=== PATIENT | female | born 1995 | race Hispanic/Latino ===

== ENCOUNTER 2019-05-03 14:29 | Observation (INO) | payer MEDICAID ==
[2019-05-03] MEDS ORDERED: XYLOCAINE 2% INFILTRATI ONE (15:23)
[2019-05-03] MEDS ORDERED: ZOFRAN IV PRN (15:23)
[2019-05-03] MEDS ORDERED: BRETHINE SUB-Q PRN (15:23)
[2019-05-03] MEDS ORDERED: SUBLIMAZE IV PRN (15:23)
[2019-05-03] MEDS ORDERED: MINERAL OIL PO PRN (15:23)
[2019-05-03] MEDS ORDERED: CELESTONE SOLUSPAN IM ONE (15:25)
[2019-05-03] MEDS ORDERED: LACTATED RINGERS 1,000 ML IV ONE (15:46)
[2019-05-03] MEDS ORDERED: PITOCin/NS 20 UNIT/1000ML DRIP 20 UNITS/1,000 ML BAG IV SCH (16:00)
--- NOTE | 2019-05-03 16:06 | Event Note ---
Date: 05/03/19 Patient sent to L&D from the office d/t contractions and advanced dilation. tachycardia noted, cat 2. MHR 100-130, she states +fm, she denies f/c/n/v. No abd pain. IVF/PO hydration. Close observation
[2019-05-03 16:13] LABS: Hemoglobin 11.6 gm/dl (10.1-14.3); Mean Corpuscular HGB Conc 34 % (30-34); Mean Corpuscular Volume 83 fl (79-97); Platelet Count 269 K/mm3 (140-440); Red Blood Count 4.11 M/mm3 (3.65-5.03); Red Cell Distribution Width 14.9 % (13.2-15.2)
[2019-05-03] MEDS: LACTATED RINGERS 1,000 ML IV SCH ×2 (16:24→23:43)
[2019-05-03 16:39] LABS: Alanine Aminotransferase 9 units/L (7-56); Uric Acid 5.1 mg/dL (3.5-7.6)
--- NOTE | 2019-05-03 17:43 | History and Physical Report ---
History of Present Illness Date of examination: 05/03/19 (pt sent from office 5,90,-1) Date of admission: 05/03/19 14:29 History of present illness: EDC Confirmation: 05/28/2019 Gestational Age: 7 5/7 weeks Past History : 2 Term Births: 0 Premature Births: 1 Living Children: 1 Para: 1 Mult. Births: 0 Prev : 0 Aborta: 0 Elect. Ab: 0 Spont. 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 of genital herpes: no Partner hx. of genital herpes: no Rash, Viral, or Febrile illness since last LMP? no Varicella/Chicken Pox Status: Immunized Genetic History Congenital Heart Defect: Mom: no Dad: no Cheryl Disease: Mom: no Dad: no Thalassemia Mom: no Dad: no Neural Tube Defect Mom: no Dad: no Down's Syndrome Mom: no Dad: no Cedrick-Sachs Mom: no Dad: no Sickle Cell Disease/Trait Mom: no Dad: no Hemophilia Mom: no Dad: no Muscular Dystrophy Mom: no Dad: no Cystic Fibrosis Mom: no Dad: no [place] Chorea Mom: no Dad: no Mental Retardation Mom: no Dad: no Fragile X Mom: no Dad: no Other Genetic/Chromosomal Disorder Mom: no Dad: no Child w/other defect Mom: no Dad: no Enviromental Exposures Xray Exposure: no Medication, drug, or alcohol use since LMP: no Chemical/Other Exposure: no Exposure to Cat Liter: no Hx of Parvovirus (Fifth Disease): no Active Medications (reviewed today): None Current Allergies (reviewed today): * CEPHALOSPORINS (Critical) Past History - Obstetrical History Expected Date of Delivery: 05/28/19 Actual Gestation: 36 Week(s) 3 Day(s) : 2 Para: 1 Hx # Term Pregnancies: 0 Number of Pregnancies: 1 (Del @ 36 weeks) Spontaneous Abortions: 0 Induced : 0 Number of Living Children: 1 Medications and Allergies Allergies Allergy/AdvReac Type Severity Reaction Status Date / Time Cephalosporins Allergy Severe Anaphylaxis Verified 05/03/19 16:13 Home Medications Medication Instructions Recorded Confirmed Last Taken Type Aspirin [Adult Aspirin] 81 mg PO DAILY 05/03/19 05/03/19 05/02/19 22:00 History [facility] Gummies 2 tab PO DAILY 05/03/19 05/03/19 05/02/19 22:00 History Active Meds: Active Medications Ephedrine Sulfate (Ephedrine Sulfate) 10 mg IV Q2M PRN PRN Reason: Hypotension Fentanyl (Sublimaze) 100 mcg IV Q2H PRN PRN Reason: Labor Pain Oxytocin/Sodium Chloride (Pitocin/Ns 20 Unit/1000ml Drip) 20 units in 1,000 mls @ 125 mls/hr IV DIRECT BEKAH Lactated Ringer's (Lactated Ringers) 1,000 mls @ 125 mls/hr IV DIRECT BEKAH Last Admin: 05/03/19 16:24 Dose: 125 mls/hr Documented by: Mineral Oil (Mineral Oil) 30 ml PO QHS PRN PRN Reason: Constipation Ondansetron HCl (Zofran) 4 mg IV Q8H PRN PRN Reason: Nausea And Vomiting Terbutaline Sulfate (Brethine) 0.25 mg SUB-Q ONCE PRN PRN Reason: Hyperstimulation/Hypertonicity - Vital Signs Vital signs: Vital Signs Pulse BP Pulse Ox 135 H 135/88 94 05/03/19 14:50 05/03/19 14:50 05/03/19 14:50 Temp Pulse Resp BP Pulse Ox 97.0 F L 98 H 18 125/70 97 05/03/19 14:51 05/03/19 17:38 05/03/19 14:51 05/03/19 17:18 05/03/19 17:38 - Physical Exam Breasts: Positive: deferred Cardiovascular: Regular rate, Normal S1, Normal S2 Lungs: Positive: Normal air movement Abdomen: Positive: normal appearance, soft, normal bowel sounds. Negative: distention, tenderness Genitourinary (Female): Positive: normal external genitalia Vulva: both: normal Vagina: Positive: normal moisture. Negative: discharge Cervix: Negative: lesion, discharge Uterus: Positive: normal size, normal contour Adnexa: both: normal Anus/Rectum: Positive: normal perianal skin, heme negative. Negative: rectal mass, hemorrhoids Extremities: Positive: normal Deep Tendon Reflex Grade: Normal +2 - Obstetrical FHR: category 1 Uterine Contraction Monitor Mode: External Cervical Dilatation: 5 (BBOW) Cervical Effacement Percentage: 90 station: -1 Uterine Contraction Pattern: Irregular Uterine Tone Measurement Phase: Resting Uterine Contraction Intensity: Mild Results Result Diagrams: 05/03/19 15:39 05/03/19 15:48 Abnormal lab results 05/03/19 Range/Units 15:48 Creatinine 0.6 L (0.7-1.2) mg/dL All other labs normal. GBS Negative HBsAg Screen Negative Negative *1 RPR Non Reactive Non Reactive *2 Rubella Antibodies, IgG [L] <0.90 index Immune >0.99 *3 Non-immune <0.90 Equivocal 0.90 - 0.99 Immune >0.99 ABO Grouping O *4 Rh Factor Positive *5 Please note: Prior records for this patient's ABO / Rh type are not available for additional verification. Antibody Screen Negative Negative *6 WBC 8.6 x10E3/uL 3.4-10.8 *7 RBC 4.22 x10E6/uL 3.77-5.28 *8 Hemoglobin 12.5 g/dL 11.1-15.9 *9 Hematocrit 37.9 % 34.0-46.6 *10 MCV 90 fL 79-97 *11 MCH 29.6 pg 26.6-33.0 *12 MCHC 33.0 g/dL 31.5-35.7 *13 RDW 13.2 % 12.3-15.4 *14 Platelets 252 x10E3/uL 150-379 *15 Neutrophils 70 % Not Estab. *16 Lymphs 24 % Not Estab. *17 Monocytes 4 % Not Estab. *18 Eos 2 % Not Estab. *19 Basos 0 % Not Estab. *20 ! Immature Cells <No Reported Value> *21 Neutrophils (Absolute) 6.1 x10E3/uL 1.4-7.0 *22 Lymphs (Absolute) 2.0 x10E3/uL 0.7-3.1 *23 Monocytes(Absolute) 0.4 x10E3/uL 0.1-0.9 *24 Eos (Absolute) 0.1 x10E3/uL 0.0-0.4 *25 Baso (Absolute) 0.0 x10E3/uL 0.0-0.2 *26 ! Immature Granulocytes 0 % Not Estab. *27 ! Immature Grans (Abs) 0.0 x10E3/uL 0.0-0.1 *28 ! NRBC <No Reported Value> *29 Hematology Comments: <No Reported Value> *30 Tests: (2) Panel 638392 ([id number]) HIV Screen 4th Generation wRfx Non Reactive Non Reactive *31 Tests: (3) Gest. Diabetes 1-Hr Screen (810315) ! Gestational Diabetes Screen 118 mg/dL 65-139 *32 According to ADA, a glucose threshold of >139 mg/dL after 50-gram load identifies approximately 80% of women with gestational diabetes mellitus, while the sensitivity is further increased to approximately 90% by a threshold of >129 mg/dL. Tests: (4) HCV Ab w/Rflx to Verification (466369) ! HCV Ab <0.1 s/co ratio 0.0-0.9 *33 Tests: (5) Comment: (075089) ! Comment: SPRCS *34 Non reactive HCV antibody screen is consistent with no HCV infection, unless recent infection is suspected or other evidence exists to indicate HCV infection. Tests: (6) Urine Culture, Routine (162739) Urine Culture, Routine Final report *35 Tests: (7) Result ([id number]) ! Result 1 No growth *36 Assessment and Plan - Patient Problems (1) labor in third trimester Onset Date: ~05/03/19 Current Visit: Yes Status: Acute Qualifiers: Fetus number: single or unspecified fetus Plan to address problem: pt sent from office with exam of 5,90,-1 Pt is have irregular mild ctx. aware. BMZ given X 1 dose for now. GBS negative PIH labs drawn due to elevated BP on arrival and hx of GHTN, labs are wnl. BP now normotensive. Will continue to observe. Pt made aware of my concerns about active mgt due to baby being . Agrees to POC to obs overnight and re-eval in the AM. Regular diet ordered, PM care. Ambien if needed.
[2019-05-03] MEDS ORDERED: AMBIEN PO PRN (18:39)
[2019-05-03 22:51] LABS: Bilirubin,Urine NEG (Negative); Blood,Urine NEG (Negative); Color,Urine Yellow (Yellow); Mucus,Urine FEW /HPF; Protein,Urine <15 mg/dL mg/dL (Negative); Urobilinogen,Urine < 2.0 mg/dL (<2.0)
[2019-05-04 07:00] VITALS: BP 127/80
--- NOTE | 2019-05-04 07:37 | Progress Note ---
Assessment and Plan pt w/o complaints, denies regular ctx. SVE rechecked w/o change by previous provider and this provider. plan for d/c home, f/u appointment in office Thursday. pre-e precautions and labor precautions reviewed. - Patient Problems (1) 36 weeks gestation of Current Visit: Yes Status: Acute (2) labor in third trimester Onset Date: ~05/03/19 Current Visit: Yes Status: Acute Qualifiers: Fetus number: single or unspecified fetus Subjective - Subjective Date of service: 05/04/19 Principal diagnosis: IUP @ 36+3 Patient reports: movement normal, no new complaints, no loss of fluid, no vaginal bleeding, no contractions Objective - Vital Signs Vital Signs: Vital Signs - 12hr 05/03/19 05/03/19 05/03/19 20:18 20:23 20:28 Temperature Pulse Rate 104 H 105 H 104 H Respiratory Rate Blood Pressure O2 Sat by Pulse 98 98 97 Oximetry 05/03/19 05/03/19 05/03/19 20:33 20:38 20:43 Temperature Pulse Rate 102 H 104 H 87 Respiratory Rate Blood Pressure O2 Sat by Pulse 96 96 96 Oximetry 05/03/19 05/03/19 05/03/19 20:47 20:53 20:58 Temperature Pulse Rate 88 101 H 95 H Respiratory Rate Blood Pressure O2 Sat by Pulse 97 96 96 Oximetry 05/03/19 05/03/19 05/03/19 21:03 21:08 21:13 Temperature Pulse Rate 85 86 84 Respiratory Rate Blood Pressure O2 Sat by Pulse 98 94 96 Oximetry 05/03/19 05/03/19 05/03/19 21:18 21:22 21:28 Temperature Pulse Rate 89 92 H 105 H Respiratory Rate Blood Pressure O2 Sat by Pulse 96 97 97 Oximetry 05/03/19 05/03/19 05/03/19 21:50 21:56 22:01 Temperature Pulse Rate 100 H 116 H 98 H Respiratory Rate Blood Pressure O2 Sat by Pulse 96 96 96 Oximetry 05/03/19 05/03/19 05/03/19 22:06 22:11 22:16 Temperature Pulse Rate 93 H 100 H 111 H Respiratory Rate Blood Pressure O2 Sat by Pulse 94 95 97 Oximetry 05/03/19 05/03/19 05/03/19 22:21 22:23 22:26 Temperature Pulse Rate 105 H 111 H 109 H Respiratory Rate Blood Pressure 143/81 O2 Sat by Pulse 97 96 Oximetry 05/03/19 05/03/19 05/03/19 22:30 22:47 22:52 Temperature Pulse Rate 90 92 H 104 H Respiratory Rate Blood Pressure O2 Sat by Pulse 95 96 96 Oximetry 05/03/19 05/03/19 05/03/19 22:56 23:01 23:07 Temperature Pulse Rate 93 H 101 H 92 H Respiratory Rate Blood Pressure O2 Sat by Pulse 96 96 97 Oximetry 05/03/19 05/03/19 05/03/19 23:12 23:17 23:22 Temperature Pulse Rate 90 86 95 H Respiratory Rate Blood Pressure O2 Sat by Pulse 96 95 96 Oximetry 05/03/19 05/03/19 05/03/19 23:26 23:31 23:36 Temperature Pulse Rate 101 H 95 H 88 Respiratory Rate Blood Pressure O2 Sat by Pulse 95 96 96 Oximetry 05/03/19 05/03/19 05/03/19 23:41 23:47 23:51 Temperature Pulse Rate 89 104 H 85 Respiratory Rate Blood Pressure O2 Sat by Pulse 96 97 96 Oximetry 05/03/19 05/04/19 05/04/19 23:56 00:01 00:13 Temperature Pulse Rate 92 H 90 100 H Respiratory Rate Blood Pressure O2 Sat by Pulse 92 98 97 Oximetry 05/04/19 05/04/19 05/04/19 00:19 00:23 00:28 Temperature Pulse Rate 93 H 110 H 94 H Respiratory Rate Blood Pressure O2 Sat by Pulse 96 97 95 Oximetry 05/04/19 05/04/19 05/04/19 00:33 00:38 00:43 Temperature Pulse Rate 105 H 98 H 97 H Respiratory Rate Blood Pressure O2 Sat by Pulse 95 95 94 Oximetry 05/04/19 05/04/19 05/04/19 00:48 00:53 00:58 Temperature Pulse Rate 90 90 90 Respiratory Rate Blood Pressure O2 Sat by Pulse 94 94 95 Oximetry 05/04/19 05/04/19 05/04/19 01:03 01:08 01:13 Temperature Pulse Rate 95 H 95 H 90 Respiratory Rate Blood Pressure O2 Sat by Pulse 93 94 94 Oximetry 05/04/19 05/04/19 05/04/19 01:18 01:22 01:23 Temperature Pulse Rate 89 101 H 102 H Respiratory Rate Blood Pressure 108/51 O2 Sat by Pulse 95 97 Oximetry 05/04/19 05/04/19 05/04/19 01:28 01:32 01:41 Temperature Pulse Rate 88 111 H 92 H Respiratory Rate Blood Pressure O2 Sat by Pulse 96 74 L 97 Oximetry 05/04/19 05/04/19 05/04/19 01:46 01:51 01:56 Temperature Pulse Rate 100 H 118 H 100 H Respiratory Rate Blood Pressure O2 Sat by Pulse 96 96 95 Oximetry 05/04/19 05/04/19 05/04/19 02:01 02:06 02:11 Temperature Pulse Rate 87 95 H 81 Respiratory Rate Blood Pressure O2 Sat by Pulse 97 96 96 Oximetry 05/04/19 05/04/19 05/04/19 02:16 02:21 02:26 Temperature Pulse Rate 88 86 91 H Respiratory Rate Blood Pressure O2 Sat by Pulse 96 95 96 Oximetry 05/04/19 05/04/19 05/04/19 02:31 02:36 02:41 Temperature Pulse Rate 95 H 79 86 Respiratory Rate Blood Pressure O2 Sat by Pulse 96 96 96 Oximetry 05/04/19 05/04/19 05/04/19 02:46 02:51 02:56 Temperature Pulse Rate 77 82 92 H Respiratory Rate Blood Pressure O2 Sat by Pulse 96 96 98 Oximetry 05/04/19 05/04/19 05/04/19 03:01 03:06 03:11 Temperature Pulse Rate 92 H 86 73 Respiratory Rate Blood Pressure O2 Sat by Pulse 94 95 95 Oximetry 05/04/19 05/04/19 05/04/19 03:16 03:21 03:26 Temperature Pulse Rate 72 74 76 Respiratory Rate Blood Pressure O2 Sat by Pulse 95 95 94 Oximetry 05/04/19 05/04/19 05/04/19 03:31 03:36 03:49 Temperature Pulse Rate 73 83 96 H Respiratory Rate Blood Pressure O2 Sat by Pulse 94 96 98 Oximetry 05/04/19 05/04/19 05/04/19 03:54 03:59 04:04 Temperature Pulse Rate 80 77 84 Respiratory Rate Blood Pressure O2 Sat by Pulse 95 94 94 Oximetry 05/04/19 05/04/19 05/04/19 04:09 04:14 04:19 Temperature Pulse Rate 78 69 78 Respiratory Rate Blood Pressure O2 Sat by Pulse 94 94 95 Oximetry 05/04/19 05/04/19 05/04/19 04:24 04:29 04:34 Temperature Pulse Rate 84 89 91 H Respiratory Rate Blood Pressure O2 Sat by Pulse 94 94 94 Oximetry 05/04/19 05/04/19 05/04/19 04:39 04:44 04:49 Temperature Pulse Rate 91 H 99 H 101 H Respiratory Rate Blood Pressure O2 Sat by Pulse 95 94 93 Oximetry 05/04/19 05/04/19 05/04/19 04:54 04:59 05:04 Temperature Pulse Rate 79 89 106 H Respiratory Rate Blood Pressure O2 Sat by Pulse 95 94 97 Oximetry 05/04/19 05/04/19 05/04/19 05:09 05:14 05:30 Temperature Pulse Rate 69 74 78 Respiratory Rate Blood Pressure O2 Sat by Pulse 93 95 99 Oximetry 05/04/19 05/04/19 05/04/19 05:35 05:40 05:45 Temperature Pulse Rate 75 80 75 Respiratory Rate Blood Pressure O2 Sat by Pulse 97 97 97 Oximetry 05/04/19 05/04/19 05/04/19 05:50 05:55 06:00 Temperature Pulse Rate 83 78 74 Respiratory Rate Blood Pressure O2 Sat by Pulse 99 98 97 Oximetry 05/04/19 05/04/19 05/04/19 06:05 06:10 06:15 Temperature Pulse Rate 80 74 79 Respiratory Rate Blood Pressure O2 Sat by Pulse 95 96 95 Oximetry 05/04/19 05/04/19 05/04/19 06:20 06:25 06:30 Temperature Pulse Rate 73 64 67 Respiratory Rate Blood Pressure O2 Sat by Pulse 96 95 96 Oximetry 05/04/19 05/04/19 06:59 07:15 Temperature 98.1 F Pulse Rate 85 Respiratory 16 Rate Blood Pressure 127/80 O2 Sat by Pulse Oximetry - Exam Breasts: normal Cardiovascular: Regular rate Lungs: Clear to auscultation Abdomen: Present: normal appearance, soft Vulva: both: normal Uterus: Present: normal FHR: category 1 Uterine Contraction Monitor Mode: External Cervical Dilatation: 4.5 (IBOW) Cervical Effacement Percentage: 80 station: -1 Uterine Contraction Pattern: Absent Uterine Tone Measurement Phase: Resting Extremities: normal Deep Tendon Reflex Grade: Normal +2 - Labs Labs: Abnormal Labs 05/03/19 15:48 Creatinine 0.6 L Laboratory Results - last 24 hr 05/03/19 05/03/19 05/03/19 15:39 15:43 15:48 WBC 10.1 RBC 4.11 Hgb 11.6 Hct 34.0 MCV 83 MCH 28 MCHC 34 RDW 14.9 Plt Count 269 Creatinine 0.6 L Estimated GFR > 60 Uric Acid 5.1 AST 15 ALT 9 Lactate Dehydrogenase 131 Urine Color Urine Turbidity Urine pH Ur Specific [place] Urine Protein Urine Glucose (UA) Urine Ketones Urine Blood Urine Nitrite Urine Bilirubin Urine Urobilinogen Ur Leukocyte Esterase Urine WBC (Auto) Urine RBC (Auto) U Epithel Cells (Auto) Urine Mucus Blood Type O POSITIVE Antibody Screen Negative 05/03/19 22:38 WBC RBC Hgb Hct MCV MCH MCHC RDW Plt Count Creatinine Estimated GFR Uric Acid AST ALT Lactate Dehydrogenase Urine Color Yellow Urine Turbidity Clear Urine pH 6.0 Ur Specific [place] 1.016 Urine Protein <15 mg/dl Urine Glucose (UA) 150 Urine Ketones 20 Urine Blood Neg Urine Nitrite Neg Urine Bilirubin Neg Urine Urobilinogen < 2.0 Ur Leukocyte Esterase Mod Urine WBC (Auto) 4.0 Urine RBC (Auto) 4.0 U Epithel Cells (Auto) 3.0 Urine Mucus Few Blood Type Antibody Screen
--- NOTE | 2019-05-04 07:40 | Discharge Summary ---
Providers - Providers Date of Admission: 05/03/19 14:29 Date of discharge: 05/04/19 (agreeable with d/c home) Attending physician: MUSTAPHA LANGSTON Primary care physician: MUSTAPHA LANGSTON Hospitalization Reason for admission: labor Discharge diagnosis: other (IUP @ 36+3 weeks, undelivered) Pertinent studies: normal pre-e labs Hospital course: overnight observation for labor and pre-eclampsia. Condition at discharge: Good Disposition: DC-01 TO HOME OR SELFCARE - Discharge Diagnoses (1) 36 weeks gestation of Status: Acute (2) labor in third trimester Status: Acute Qualifiers: Fetus number: single or unspecified fetus Plan - Provider Discharge Summary Activity: no sex for 6 weeks, no heavy lifting 4 weeks, no strenuous exercise Diet: routine Instructions: routine Additional instructions: [] Smoking cessation referral if applicable(refer to patient education folder for contact #) [] Refer to [facility] Booklet Call your doctor immediately for: * Fever > 100.5 * Heavy vaginal bleeding ( >1 pad per hour) * Severe persistent headache * Shortness of breath * Reddened, hot, painful area to leg or breast * Drainage or odor from incision. * Keep incision clean and dry at all times and follow doctor's instructions regarding bathing/showering - Follow up plan Follow up: MUSTAPHA LANGSTON MD [Primary Care Provider] - [address] Forms: [facility] Discharge Summary, Work/School Excuse Out Patient
== END 2019-05-04 07:30 | disposition home or self-care (01) ==
LOC: INTOOBSV 14:29 → LD 14:29
PROVIDERS: ADMIT Obstetrics & Gynecology; ATTEND Obstetrics & Gynecology
DX: O60.03 Preterm labor without delivery, third trimester (principal); Z3A.36 36 weeks gestation of pregnancy
CPT/HCPCS: 36415; 81001; 82565; 83615; 84450; 84460; 84550; 85027; 86592; 86850; 86900; 86901; 96372; G0378; G0379; J0702; J7120

== ENCOUNTER 2019-05-06 20:25 | Inpatient (IN) | payer MEDICAID ==
[2019-05-06] MEDS ORDERED: ZOFRAN IV PRN (21:04)
[2019-05-06] MEDS ORDERED: MINERAL OIL PO PRN (21:04)
[2019-05-06] MEDS ORDERED: SUBLIMAZE IV PRN (21:04)
[2019-05-06] MEDS ORDERED: BRETHINE SUB-Q PRN (21:04)
[2019-05-06] MEDS ORDERED: XYLOCAINE 2% INFILTRATI ONE (21:04)
--- NOTE | 2019-05-06 21:12 | History and Physical Report ---
History of Present Illness Date of examination: 05/06/19 Chief complaint: contractions and rectal pressure History of present illness: EDC Confirmation: 05/28/2019 Past History : 2 Term Births: 0 Premature Births: 1 Living Children: 1 Para: 1 Mult. Births: 0 Prev : 0 Aborta: 0 Elect. Ab: 0 Spont. 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 of genital herpes: no Partner hx. of genital herpes: no Rash, Viral, or Febrile illness since last LMP? no Varicella/Chicken Pox Status: Immunized Genetic History Congenital Heart Defect: Mom: no Dad: no Cheryl Disease: Mom: no Dad: no Thalassemia Mom: no Dad: no Neural Tube Defect Mom: no Dad: no Down's Syndrome Mom: no Dad: no Cedrick-Sachs Mom: no Dad: no Sickle Cell Disease/Trait Mom: no Dad: no Hemophilia Mom: no Dad: no Muscular Dystrophy Mom: no Dad: no Cystic Fibrosis Mom: no Dad: no [place] Mom: no Dad: no Mental Retardation Mom: no Dad: no Fragile X Mom: no Dad: no Other Genetic/Chromosomal Disorder Mom: no Dad: no Child w/other defect Mom: no Dad: no Enviromental Exposures Xray Exposure: no Medication, drug, or alcohol use since LMP: no Chemical/Other Exposure: no Exposure to Cat Liter: no Hx of Parvovirus (Fifth Disease): no Active Medications (reviewed today): None Current Allergies (reviewed today): * CEPHALOSPORINS (Critical) Past History Past Medical History: other (see HPI) Past Surgical History: other (see HPI) 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 (see HPI) Family/Genetic History: other (see HPI) - Obstetrical History Expected Date of Delivery: 05/28/19 Actual Gestation: 36 Week(s) 6 Day(s) : 2 Para: 1 Hx # Term Pregnancies: 0 Number of Pregnancies: 1 Spontaneous Abortions: 0 Induced : 0 Number of Living Children: 1 Medications and Allergies Allergies Allergy/AdvReac Type Severity Reaction Status Date / Time Cephalosporins Allergy Severe Anaphylaxis Verified 05/03/19 16:13 Home Medications Medication Instructions Recorded Confirmed Last Taken Type Aspirin [Adult Aspirin] 81 mg PO DAILY 05/03/19 05/03/19 05/02/19 22:00 History [facility] Gummies 2 tab PO DAILY 05/03/19 05/03/19 05/02/19 22:00 History Review of Systems All systems: negative - Vital Signs Vital signs: Vital Signs Pulse BP 117 H 121/74 05/06/19 21:02 05/06/19 21:02 Temp Pulse Resp BP Pulse Ox 117 H 121/74 05/06/19 21:02 05/06/19 21:02 - Physical Exam Breasts: Positive: normal Cardiovascular: Regular rate Lungs: Positive: Clear to auscultation, Normal air movement Abdomen: Positive: normal appearance, soft, normal bowel sounds Genitourinary (Female): Positive: normal external genitalia, normal perenium Vulva: both: normal Vagina: Positive: normal moisture Uterus: Positive: normal size, normal contour Extremities: Positive: normal Deep Tendon Reflex Grade: Normal +2 - Obstetrical FHR: category 2 Uterine Contraction Monitor Mode: External Cervical Dilatation: 6 (BBOW) Cervical Effacement Percentage: 80 station: 0 Uterine Contraction Pattern: Regular Uterine Tone Measurement Phase: Contraction Uterine Contraction Intensity: Moderate Results All other labs normal. Assessment and Plan 24y/o @ 36+6 weeks presents to L&D in labor. GBS NEG. Admission orders in EMR. Anticipate . Dr. Morrison aware of admission. pelvis assessed adequate - Patient Problems (1) Rubella non-immune status, antepartum Current Visit: Yes Status: Acute Plan to address problem: MMR (2) 36 weeks gestation of Current Visit: No Status: Acute (3) labor in third trimester Onset Date: ~05/03/19 Current Visit: No Status: Acute Qualifiers: Fetus number: single or unspecified fetus
[2019-05-06] MEDS ORDERED: PITOCin/NS 30 UNIT/500ML 30 UNITS/500 ML BAG IV SCH (22:00)
[2019-05-06] MEDS ORDERED: LACTATED RINGERS 1,000 ML IV SCH (22:00)
[2019-05-06] MEDS ORDERED: PITOCin/NS 20 UNIT/1000ML DRIP 20 UNITS/1,000 ML BAG IV SCH (22:00)
[2019-05-06 22:41] LABS: Hematocrit 36.8 % (30.3-42.9); Hemoglobin 12.5 gm/dl (10.1-14.3); Mean Corpuscular HGB Conc 34 % (30-34); Mean Corpuscular Volume 83 fl (79-97); Platelet Count 310 K/mm3 (140-440); Red Blood Count 4.44 M/mm3 (3.65-5.03); Red Cell Distribution Width 15.1 % (13.2-15.2)
[2019-05-06] MEDS ORDERED: NARCAN 2 MG/2 ML IV PRN (23:21)
--- NOTE | 2019-05-06 23:21 | Anesthesia Consultation ---
Anesthesia Consult and Med Hx Date of service: 05/06/19 - Airway Anesthetic Teeth Evaluation: Good ROM Head & Neck: Adequate Mental/Hyoid Distance: Adequate Mallampati Class: Class II Intubation Access Assessment: Probably Good - Pulmonary Exam CTA: Yes - Cardiac Exam Cardiac Exam: RRR - Pre-Operative Health Status ASA Pre-Surgery Classification: ASA2 Proposed Anesthetic Plan: Epidural - Pulmonary Hx Asthma: No COPD: No Hx Pneumonia: No - Cardiovascular System Hx Hypertension: No - Central Nervous System Hx Seizures: No Hx Psychiatric Problems: No - Endocrine Hx Renal Disease: No Hx End Stage Renal Disease: No Hx Hypothyroidism: No Hx Hyperthyroidism: No - Hematic Hx Anemia: No Hx Sickle Cell Disease: No - Other Systems Hx Alcohol Use: No
[2019-05-06] MEDS ORDERED: fentaNYL-BUPIV 2 MCG/ML-0.125% 200 MCG/100 ML BAG EPIDURAL SCH (23:45)
--- NOTE | 2019-05-07 00:02 | Progress Note ---
Assessment and Plan pt s/p epidural, some relief noted. SVE now 9.5/100/+1. Clear fluid. VSSAF. Anticipate . Dr. Morrison updated on pt's status. - Patient Problems (1) Rubella non-immune status, antepartum Current Visit: Yes Status: Acute (2) 36 weeks gestation of Current Visit: No Status: Acute (3) labor in third trimester Onset Date: ~05/03/19 Current Visit: No Status: Acute Qualifiers: Fetus number: single or unspecified fetus Subjective - Subjective Date of service: 05/06/19 Principal diagnosis: IUP @ 36+6 weeks, laboring Interval history: EDC Confirmation: 05/28/2019 Past History : 2 Term Births: 0 Premature Births: 1 Living Children: 1 Para: 1 Mult. Births: 0 Prev : 0 Aborta: 0 Elect. Ab: 0 Spont. Ab: 0 Ectopics: 0 # 1 Delivery date: 2016 Weeks Gestation: 36 labor: yes Delivery type: Delivery location: 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 of genital herpes: no Partner hx. of genital herpes: no Rash, Viral, or Febrile illness since last LMP? no Varicella/Chicken Pox Status: Immunized Genetic History Congenital Heart Defect: Mom: no Dad: no Cheryl Disease: Mom: no Dad: no Thalassemia Mom: no Dad: no Neural Tube Defect Mom: no Dad: no Down's Syndrome Mom: no Dad: no Cedrick-Sachs Mom: no Dad: no Sickle Cell Disease/Trait Mom: no Dad: no Hemophilia Mom: no Dad: no Muscular Dystrophy Mom: no Dad: no Cystic Fibrosis Mom: no Dad: no [place] Chorea Mom: no Dad: no Mental Retardation Mom: no Dad: no Fragile X Mom: no Dad: no Other Genetic/Chromosomal Disorder Mom: no Dad: no Child w/other defect Mom: no Dad: no Enviromental Exposures Xray Exposure: no Medication, drug, or alcohol use since LMP: no Chemical/Other Exposure: no Exposure to Cat Liter: no Hx of Parvovirus (Fifth Disease): no Active Medications (reviewed today): None Current Allergies (reviewed today): * CEPHALOSPORINS (Critical) Patient reports: loss of fluid, vaginal bleeding, movement normal, contractions Objective - Vital Signs Vital Signs: Vital Signs - 12hr 05/06/19 05/06/19 05/06/19 21:02 21:32 21:34 Pulse Rate 117 H 113 H 123 H Respiratory Rate Blood Pressure 121/74 178/103 131/80 05/06/19 05/06/19 05/06/19 22:51 23:30 23:33 Pulse Rate 89 77 Respiratory 18 Rate Blood Pressure 140/86 142/79 05/06/19 05/06/19 05/06/19 23:35 23:37 23:39 Pulse Rate 86 83 97 H Respiratory Rate Blood Pressure 132/71 135/75 135/82 05/06/19 05/06/19 05/06/19 23:41 23:43 23:45 Pulse Rate 89 90 105 H Respiratory Rate Blood Pressure 137/76 138/77 143/80 05/06/19 05/06/19 05/06/19 23:46 23:49 23:51 Pulse Rate 99 H 101 H 88 Respiratory Rate Blood Pressure 144/86 138/79 136/80 05/06/19 05/06/19 05/06/19 23:53 23:55 23:57 Pulse Rate 78 84 Respiratory Rate Blood Pressure 127/75 128/61 134/69 - Exam Breasts: normal Cardiovascular: Regular rate Lungs: Clear to auscultation, Normal air movement Abdomen: Present: normal appearance, soft Vulva: both: normal Uterus: Present: normal FHR: auscultation normal, category 1 Uterine Contraction Monitor Mode: External Cervical Dilatation: 9.5 Cervical Effacement Percentage: 100 station: +1 Uterine Contraction Frequency (min): 2-3 Uterine Contraction Duration: 50-60 Uterine Contraction Pattern: Regular Uterine Tone Measurement Phase: Contraction Uterine Contraction Intensity: Strong/Firm Extremities: normal Deep Tendon Reflex Grade: Normal +2 - Labs Labs: Abnormal Labs 05/06/19 20:00 WBC 13.7 H Laboratory Results - last 24 hr 05/06/19 05/06/19 20:00 20:00 WBC 13.7 H RBC 4.44 Hgb 12.5 Hct 36.8 MCV 83 MCH 28 MCHC 34 RDW 15.1 Plt Count 310 Blood Type O POSITIVE
--- NOTE | 2019-05-07 00:43 | Procedure Note ---
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 floppy after delivery, cord quickly cut and handed off to warmer where baby immediately started crying. 3 vessel cord, cord blood collected. Placenta del intact and complete. no laceration to repair. fundus firm, lochia scant. EBL 300, apgars 8/9, wt 7#4oz. - Infant A at 1 minute: 8 at 5 minutes: 9 Gender: Male (7#4)
[2019-05-07] MEDS ORDERED: BENADRYL PO PRN (03:42)
[2019-05-07] MEDS ORDERED: DULCOLAX PR PRN (03:42)
[2019-05-07] MEDS ORDERED: MILK OF MAGNESIA PO PRN (03:42)
[2019-05-07] MEDS ORDERED: TUCKS PAD TP PRN (03:42)
[2019-05-07] MEDS ORDERED: LANSINOH TP PRN (03:42)
[2019-05-07] MEDS ORDERED: IBUPROFEN PO SCH (03:42)
[2019-05-07] MEDS ORDERED: DERMOPLAST TP PRN (03:42)
[2019-05-07] MEDS ORDERED: SODIUM CHLORIDE FLUSH SYRINGE 10 ML IV NR (03:42)
[2019-05-07] MEDS ORDERED: TYLENOL PO PRN (03:42)
[2019-05-07] MEDS ORDERED: PITOCin/NS 20 UNIT/1000ML DRIP 20 UNITS/1,000 ML BAG IV SCH (03:42)
[2019-05-07] MEDS ORDERED: PHENERGAN PO PRN (03:42)
[2019-05-07] MEDS: IBUPROFEN PO SCH ×3 (05:19→17:20)
--- NOTE | 2019-05-07 09:35 | Event Note ---
Date: 05/07/19 (<12 hr s/p ) Patient reports feeling well, denies any complaints or concerns. She denies any heavy bleeding, denies dizziness with ambulation. VSSAF. Continue POC.
[2019-05-07] MEDS: COLACE PO SCH (12:32)
[2019-05-07] MEDS: FEOSOL PO SCH (12:33)
[2019-05-07] MEDS: PRENATAL VITAMIN PO SCH (17:20)
[2019-05-07 19:11] LABS: Hematocrit 32.4 % (30.3-42.9); Hemoglobin 10.8 gm/dl (10.1-14.3)
[2019-05-08] MEDS: FEOSOL PO SCH ×2 (02:19→11:16)
[2019-05-08] MEDS: COLACE PO SCH ×2 (02:20→11:16)
[2019-05-08] MEDS: IBUPROFEN PO SCH (02:22)
[2019-05-08] MEDS ORDERED: M-M-R II VACCINE SUB-Q ONE (06:00)
[2019-05-08] MEDS ORDERED: BOOSTRIX IM ONE (06:00)
--- NOTE | 2019-05-08 10:49 | Discharge Summary ---
Providers - Providers Date of Admission: 05/07/19 00:59 Date of discharge: 05/08/19 (patient desires discharge today) Attending physician: KYRA GOODSON Primary care physician: KYRA GOODSON Hospitalization Reason for admission: labor Condition: Good Pertinent studies: post delivery H&H 10.8/32.4 Procedures: Hospital course: uncomplicated delivery and course Disposition: DC-01 TO HOME OR SELFCARE Core Measure Documentation - Palliative Care Palliative Care/ Comfort Measures: Not Applicable - Core Measures Any of the following diagnoses?: none Exam - Constitutional Vitals: Temp Pulse Resp BP Pulse Ox 98.4 F 64 20 96/45 05/08/19 08:05 05/08/19 08:05 05/08/19 08:05 05/08/19 08:05 General appearance: Present: no acute distress, well-nourished - EENT Eyes: Present: PERRL ENT: hearing intact, clear oral mucosa - Neck Neck: Present: supple, normal ROM - Respiratory Respiratory effort: normal Respiratory: bilateral: CTA - Cardiovascular Heart Sounds: Present: S1 & S2. Absent: rub, click - Extremities Extremities: pulses symmetrical, No edema Peripheral Pulses: within normal limits - Abdominal General gastrointestinal: Present: soft, non-tender, non-distended, normal bowel sounds Female genitourinary: Present: normal - Integumentary Integumentary: Present: clear, warm, dry - Musculoskeletal Musculoskeletal: gait normal, strength equal bilaterally - Psychiatric Psychiatric: appropriate mood/affect, intact judgment & insight - Neurologic Neurologic: CNII-XII intact, moves all extremities - Additional findings Additional findings: PPD1. Patient resting in bed, reports feeling well, denies any complaints. She reports pain is well controlled with medication. FF, ML, U/2. Vaginal bleeding is scant, patient denies any heavy bleeding or clots. Patient reports breast feeding is going well, she denies any breast complaints, breast feeding is going well. VSSAF. Reviewed post delivery H&H with patient, she denies any dizziness or feeling faint with position changes or ambulation. Encouraged to increase water intake and continue ambulation. Reviewed danger signs to notify provider for post discharge. Pt to f/u for pp visit in 6 weeks, desires OCP for contraception. Plan Activity: no restrictions Diet: regular Follow up with: KYRA GOODSON MD [Primary Care Provider] - 6 Weeks (Congratulations! Please call [phone] to schedule your appointment in 4 weeks. Call with any questions or concerns. )
[2019-05-08] MEDS: PRENATAL VITAMIN PO SCH (11:16)
[2019-05-08 12:25] VITALS: BP 136/80
== END 2019-05-08 15:00 | disposition home or self-care (01) | DRG 775 ==
LOC: TRG 20:25 → LD 23:05 → TRG 05-07 00:59 → LD 05-07 00:59 → OB 05-07 03:37
PROVIDERS: ADMIT Obstetrics & Gynecology; ATTEND Obstetrics & Gynecology
PROC: 10E0XZZ Delivery of Products of Conception, External Approach (ICD-10-PCS; principal; 2019-05-07)
PROC: 3E0234Z Introduction of Serum, Toxoid and Vaccine into Muscle, Percutaneous Approach (ICD-10-PCS; 2019-05-07)
DX: O60.14X0 Preterm labor third trimester with preterm delivery third trimester, not applicable or unspecified (principal); O76 Abnormality in fetal heart rate and rhythm complicating labor and delivery; Z3A.36 36 weeks gestation of pregnancy; Z88.1 Allergy status to other antibiotic agents; Z37.0 Single live birth; Z23 Encounter for immunization
CPT/HCPCS: 36415; 59025; 85014; 85018; 85027; 86592; 86850; 86900; 86901; 96360; 96365; 96374; G0378; A6250; J2405; J2590; J3010; J7120